=== PATIENT | male | born 1980 | race Caucasian/White ===

== ENCOUNTER 2018-12-18 13:10 | Day surgery (SDC) | payer OTHER ==
[2018-12-18] MEDS ORDERED: DIPHENHYDRAMINE 50 MG INJ IV (14:00)
[2018-12-18] MEDS ORDERED: FENTAnyl 50 MCG/ML VIAL IV (14:00)
[2018-12-18] MEDS ORDERED: LABETALOL HCL 20MG INJ IV (14:00)
[2018-12-18] MEDS ORDERED: EPHEDrine SULFATE 50 MG/5 ML SYG IV (14:00)
[2018-12-18] MEDS ORDERED: ONDANSETRON 4 MG INJ IV (14:00)
[2018-12-18] MEDS ORDERED: hydrALAzine 20 MG INJ IV (14:00)
[2018-12-18] MEDS ORDERED: LIDOCAINE 2% (SDV) 5 ML INJ (14:22)
[2018-12-18] MEDS ORDERED: PROPOFOL 80 ML (14:22)
== END 2018-12-18 15:02 | disposition home or self-care (01) ==
LOC: GIL 13:10
DX: K92.1 Melena (principal); K21.0 Gastro-esophageal reflux disease with esophagitis; E11.9 Type 2 diabetes mellitus without complications; I10 Essential (primary) hypertension
CPT/HCPCS: 43239; 82962; 88305; 88313